=== PATIENT | female | born 1980 | race Two or more races ===

== ENCOUNTER 2017-05-08 03:11 | Emergency (ER) | payer MEDICAID, OTHER ==
[~2017-05-08] VITALS: Ht 170.2 cm; Wt 70.3 kg
[2017-05-08 03:55] VITALS: BP 106/67
[2017-05-08] MEDS ORDERED: diphenhdrAMINE HCL 50 MG/1 ML VL ONE (07:12)
[2017-05-08] MEDS ORDERED: LORazepam 2MG/ML-1ML VIAL ONE (07:12)
[2017-05-08] MEDS ORDERED: HALOPERIDOL LACTATE 5 MG/ML INJ VIAL ONE (07:12)
== END 2017-05-08 08:15 | disposition left against medical advice (07) ==
LOC: ER 03:11 → EDBD 03:11 → ER 08:15
DX: R51 Headache (principal); R52 Pain, unspecified; F41.9 Anxiety disorder, unspecified; F17.210 Nicotine dependence, cigarettes, uncomplicated; Y08.89XA Assault by other specified means, initial encounter; Y93.89 Activity, other specified; Y92.89 Other specified places as the place of occurrence of the external cause; Y99.8 Other external cause status
CPT/HCPCS: 99284; J2060